=== PATIENT | male | born 1975 | race Caucasian/White ===

== ENCOUNTER 2024-05-06 06:59 | Day surgery (SDC) | payer OTHER ==
[2024-05-06] MEDS: Dextrose 5%-0.45% NaCl 1,000 ML IV SCH (07:56)
[2024-05-06] MEDS ORDERED: fentaNYL 100 MCG/2 ML SDV ONE (07:59)
[2024-05-06] MEDS ORDERED: Midazolam 1 MG/ML 2 ML SDV IV ONE (07:59)
[2024-05-06] MEDS ORDERED: Midazolam 1 MG/ML 2 ML SDV ONE (07:59)
[2024-05-06] MEDS ORDERED: fentaNYL 100 MCG/2 ML SDV IV ONE (07:59)
[2024-05-06] MEDS: Midazolam 1 MG/ML 2 ML SDV IV ONE ×2 (08:34)
[2024-05-06] MEDS: fentaNYL 100 MCG/2 ML SDV IV ONE ×2 (08:34)
== END 2024-05-06 10:24 | disposition home or self-care (01) ==
LOC: DL.ENDO 06:59
PROVIDERS: ATTEND Internal Medicine Gastroenterology
DX: K29.50 Unspecified chronic gastritis without bleeding (principal); B96.81 Helicobacter pylori [H. pylori] as the cause of diseases classified elsewhere
CPT/HCPCS: 43239; J2250; J3010; J7799

== ENCOUNTER 2024-05-13 06:49 | Day surgery (SDC) | payer OTHER ==
[2024-05-13] MEDS ORDERED: Midazolam 1 MG/ML 2 ML SDV IV ONE (06:56)
[2024-05-13] MEDS ORDERED: Midazolam 1 MG/ML 2 ML SDV ONE (06:56)
[2024-05-13] MEDS ORDERED: fentaNYL 100 MCG/2 ML SDV ONE (06:56)
[2024-05-13] MEDS ORDERED: fentaNYL 100 MCG/2 ML SDV IV ONE (06:56)
[2024-05-13] MEDS: Dextrose 5%-0.45% NaCl 1,000 ML IV SCH (07:19)
[2024-05-13] MEDS: Midazolam 1 MG/ML 2 ML SDV IV ONE ×4 (07:30→07:33)
[2024-05-13] MEDS: fentaNYL 100 MCG/2 ML SDV IV ONE ×2 (07:30)
== END 2024-05-13 09:19 | disposition home or self-care (01) ==
LOC: DL.ENDO 06:49
PROVIDERS: ATTEND Internal Medicine Gastroenterology
DX: Z12.11 Encounter for screening for malignant neoplasm of colon (principal)
CPT/HCPCS: 45378; J2250; J3010; J7799